=== PATIENT | male | born 1990 | race African-American/Black ===

== ENCOUNTER 2018-09-27 19:57 | Emergency (ER) | payer SELFPAY ==
[~2018-09-27] VITALS: Ht 195.6 cm; Wt 81.8 kg
[2018-09-27 20:14] VITALS: BP 123/77; Ht 195.6 cm; Wt 81.8 kg
[2018-09-27] MEDS ORDERED: TRAZODONE HCL150 MG (20:16)
[2018-09-27] MEDS ORDERED: DEPAKOTE125 MG (20:16)
[2018-09-27] MEDS ORDERED: BENZTROPINE MESY1 MG (20:16)
[2018-09-27] MEDS ORDERED: HALDOL5 MG (20:16)
[2018-09-27] MEDS ORDERED: CELEXA10 MG (20:16)
[2018-09-27 21:07] LABS: APPEARANCE CLEAR (CLEAR); BILIRUBIN NEGATIVE (NEGATIVE); COLOR YELLOW (YELLOW); GLUCOSE NEGATIVE (NEGATIVE); KETONE NEGATIVE (NEGATIVE); NITRITE NEGATIVE (NEGATIVE); PROTEIN NEGATIVE (NEGATIVE); SPECIFIC GRAVITY 1.015 (1.005-1.020); UROBILINOGEN NORMAL (NORMAL)
[2018-09-27] MEDS ORDERED: ZOFRAN8 MG PO (22:42)
[2018-09-27] MEDS ORDERED: OMEPRAZOLE40 MG PO (22:42)
== END 2018-09-27 22:44 | disposition home or self-care (01) ==
LOC: D.ER 19:57
PROVIDERS: Emergency Medicine
DX: R10.9 Unspecified abdominal pain (principal)